=== PATIENT | male | born 1950 | race Caucasian/White ===

== ENCOUNTER 2018-03-27 17:20 | Emergency (ER) | payer MEDICARE, BC ==
[~2018-03-27] VITALS: Ht 185.4 cm; Wt 108.9 kg
[2018-03-27] MEDS ORDERED: ONDANSETRON PF 4 MG/2 ML VIAL. IV ONE (17:45)
[2018-03-27] MEDS ORDERED: MORPHINE SULFATE 4 MG/ML VIAL. IV ONE (17:45)
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
[2018-03-27 19:33] VITALS: BP 142/80
[2018-03-27] MEDS ORDERED: HYDR-971 PO (19:59)
--- NOTE | 2018-03-28 06:52 | EKG ---
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
== END 2018-03-27 20:09 | disposition home or self-care (01) ==
LOC: ER 17:20
DX: S29.011A Strain of muscle and tendon of front wall of thorax, initial encounter (principal); V43.52XA Car driver injured in collision with other type car in traffic accident, initial encounter; Y93.89 Activity, other specified; Y92.89 Other specified places as the place of occurrence of the external cause; Y99.8 Other external cause status
CPT/HCPCS: 70450; 71250; 72125; 93005; 96374; 96375; 99284; J2270; J2405